=== PATIENT | female | born 1970 | race Caucasian/White ===

== ENCOUNTER → 2018-01-09 | Outpatient (CLI) | payer BC ==
--- NOTE | 2018-01-11 11:46 | MM ---
Reason for exam: screening (asymptomatic). Last mammogram was performed 2 years and 2 months ago. History: Took hormonal contraceptives for 4 years. Physical Findings: A clinical breast exam by your physician is recommended on an annual basis and results should be correlated with mammographic findings. MG 3D Screening Mammo W/Cad Bilateral CC and MLO view(s) were taken. Prior study comparison: November 04, 2015, bilateral MG 3d screening mammo w/cad. The breast tissue is heterogeneously dense. This may lower the sensitivity of mammography. No significant changes when compared with prior studies. ASSESSMENT: Negative, BI-RAD 1 RECOMMENDATION: Routine screening mammogram of both breasts in 1 year.
== END | disposition home or self-care (01) ==
LOC: RADMAMWWP 16:25
PROVIDERS: ATTEND Obstetrics & Gynecology
DX: Z12.31 Encounter for screening mammogram for malignant neoplasm of breast (principal)
CPT/HCPCS: 77063; 77067

== ENCOUNTER 2024-10-05 11:42 | Emergency (ER) | payer BC ==
--- NOTE | 2024-10-05 12:11 | ED ---
Female Urogenital HPI - General Source: family - History of Present Illness Onset/Timin -: days(s) <Rahul Deleon - Last Filed: 10/05/24 12:56> <Yinka Francois - Last Filed: 10/05/24 14:32> - General Stated complaint: fell downstairs R foot and L knee injury Time Seen by Provider: 10/05/24 11:58 - History of Present Illness Initial comments: Dictation was produced using [employer] dictation software. please excuse any grammatical, word or spelling errors. Chief Complaint: 54-year-old female with right foot pain and left knee pain History of Present Illness: Patient is a 54-year-old female presents to the emergency department with left knee pain and right foot pain. Patient states she was walking the stairs. States that she missed the last step. She was carrying her dog. As she missed the last step she states that her left knee bent in a valgus position and then her right foot curled over the step causing it to flex. Patient denies any other complaints. Denies any anticoagulation use. The ROS documented in this emergency department record has been reviewed and confirmed by me. Those systems with pertinent positive or negative responses have been documented in the HPI. All other systems are other negative and/or noncontributory. (Yinka Francois) - Related Data Allergies Allergy/AdvReac Type Severity Reaction Status Date / Time sulfamethoxazole Allergy Rash/Hives Verified 10/05/24 12:33 [From Bactrim] trimethoprim [From Bactrim] Allergy Rash/Hives Verified 10/05/24 12:33 Review of Systems ROS Other: All systems not noted in ROS Statement are negative. <Rahul Deleon - Last Filed: 10/05/24 12:56> ROS Other: All systems not noted in ROS Statement are negative. <Yinka Francois - Last Filed: 10/05/24 14:32> ROS Statement: Those systems with pertinent positive or pertinent negative responses have been documented in the HPI. General Exam <Rahul Deleon - Last Filed: 10/05/24 12:56> <Yinka Francois - Last Filed: 10/05/24 14:32> - General Exam Comments Initial Comments: Visual Physical Exam Vital signs reviewed General: Well-appearing, nontoxic, no acute distress. Head: Normocephalic, atraumatic Eyes: PERRLA, EOMI ENT: Airway patent Chest: Nonlabored breathing Skin: No visual rash, normal skin tone Neuro: Alert. Patient appears confused Musculoskeletal: No gross abnormalities (Rahul Deleon) PHYSICAL EXAM: General Impression: Alert and oriented x3, not in acute distress HEENT: Normocephalic atraumatic, extra-ocular movements intact, pupils equal and reactive to light bilaterally, mucous membranes moist. Cardiovascular: Heart regular rate and rhythm Chest: Able to complete full sentences, no retractions, no tachypnea Abdomen: abdomen soft, non-tender, non-distended, no organomegaly Musculoskeletal: Pulses present and equal in all extremities, no peripheral edema Left knee: No gross deformity Right foot and ankle: No gross deformity Motor: no focal deficits noted Neurological: CN II-XII grossly intact, no focal motor or sensory deficits noted Skin: Intact with no visualized rashes Psych: Normal affect and mood (Yinka Francois) Course Vital Signs 10/05/24 12:29 Temperature 98.2 F Pulse Rate 98 Respiratory 18 Rate Blood Pressure 154/96 O2 Sat by Pulse 99 Oximetry Procedures - Orthopedic Splinting/Casting Injury #1 Side: left Lower Extremity Injury Location: short leg, foot Lower Extremity Immobilizer: posterior splint <Yinka Francois - Last Filed: 10/05/24 14:32> Medical Decision Making <Rahul Deleon - Last Filed: 10/05/24 12:56> <Yinka Francois - Last Filed: 10/05/24 14:32> - Medical Decision Making I completed the quick note portion of this chart signed NAVID Paulson (Rahul Deleon) Was pt. sent in by a medical professional or institution (JAMAL Saldana, MACHINE ADJUSTER LEADER, urgent care, hospital, or assisted...) When possible be specific @ -No Did you speak to anyone other than the patient for history (EMS, parent, family, police, friend...)? What history was obtained from this source @ -No Did you review nursing and triage notes (agree or disagree)? Why? @ -I reviewed and agree with nursing and triage notes Were old charts reviewed (outside hosp., previous admission, EMS record, old EKG, old radiological studies, urgent care reports/EKG's, assisted records)? Report findings @ -No old charts were reviewed Differential Diagnosis (chest pain, altered mental status, abdominal pain women, abdominal pain men, vaginal bleeding, musculoskeletal, weakness, fever, dyspnea, syncope, headache, dizziness, GI bleed, back pain, seizure, CVA, palpatations, mental health)? @ -Lisfranc injury, knee fracture, tib-fib fracture, ankle sprain EKG interpreted by me (3pts min.). @ -None done X-rays interpreted by me (1pt min.). @ -The left knee shows tiny effusion, x-ray of the right foot and ankle shows no acute processes. CT interpreted by me (1pt min.). @ -None done U/S interpreted by me (1pt. min.). @ -None done What testing was considered but not performed or refused? (CT, X-rays, U/S, labs)? Why? @ -None What meds were considered but not given or refused? Why? @ -None Was smoking cessation discussed for >3mins.? @ -No Were there social determinants of health that impacted care today? How? (Homelessness, low income, unemployed, alcoholism, drug addiction, transportation, low edu. Level, literacy, decrease access to med. care, detention, rehab)? @ -No Was there de-escalation of care discussed even if they declined (Discuss DNR or withdrawal of care, Hospice)? DNR status @ -No What co-morbidities impacted this encounter? (DM, HTN, Smoking, COPD, CAD, Cancer, CVA, ARF, Chemo, Hep., AIDS, mental health diagnosis, sleep apnea, morbid obesity)? @ -None Was patient admitted / discharged? Hospital course, mention meds given and route, prescriptions, significant lab abnormalities, going to OR and other pertinent info. @ -54-year-old female with history of previous injury to the left knee and right foot presents to the ER with left knee and right foot injury after falling on it awkwardly. Vital signs stable. Physical examination shows no obvious deformities. Knee x-ray shows tiny effusion. Foot and ankle x-ray are negative. She does have pain at the proximal fifth metatarsal raising suspicion of possible Gomez fracture. She is placed in a right foot splint. Patient also placed in left knee immobilizer. Given outpatient follow-up with orthopedic surgery. Patient given analgesics starter pack. Patient is weightbearing as tolerated to the left knee. She is told to nonweightbearing to the right foot until evaluated by specialist. Did you discuss the management of the patient with other professionals (professionals i.e. , PA, MACHINE ADJUSTER LEADER, lab, RT, psych nurse, oncology social worker, dandy tender, teacher, payroll officer, community case manager)? Give summary @ -No Was critical care preformed (if so, how long)? @ -No Undiagnosed new problem with uncertain prognosis? @ -No Drug Therapy requiring intensive monitoring for toxicity (Heparin, Nitro, Insulin, Cardizem)? @ -No Were any procedures done? @ -No Diagnosis/symptom? Acute, or Chronic, or Acute on Chronic? Uncomplicated (without systemic symptoms) or Complicated (systemic symptoms)? @ -Knee strain, right knee pain Side effects of treatment? @ -No Exacerbation, Progression, or Severe Exacerbation? @ -No Poses a threat to life or bodily function? How? (Chest pain, [place], [place], pneumonia, PE, COPD, DKA, ARF, appy, cholecystitis, CVA, Diverticulitis, Homicidal, Suicidal, threat to staff... and all critical care pts) @ -yes (Yinka Francois) Disposition <Rahul Deleon - Last Filed: 10/05/24 12:56> Is patient prescribed a controlled substance at d/c from ED?: No Time of Disposition: 14:31 <Yinka Francois - Last Filed: 10/05/24 14:32> Clinical Impression: Knee strain, Strain of left foot Disposition: HOME SELF-CARE Condition: Fair Instructions (If sedation given, give patient instructions): Fall Prevention (ED) Additional Instructions: no weight bearing to right foot until cleared by orthopedic surgery. weight bearing as tolerated to left knee Referrals: Paul Nielsen MD [STAFF PHYSICIAN] - 1-2 days
[2024-10-05 12:33] VITALS: RESP 18; TEMP 98.2
--- NOTE | 2024-10-05 13:49 | XR ---
Left knee. HISTORY: Pain following fall. COMPARISON: None TECHNIQUE: 3 views left knee were obtained. FINDINGS: There is no fracture, dislocation or focal intraosseous abnormality. There is a suggestion of a tiny joint effusion. IMPRESSION: Tiny joint effusion with no other significant abnormality seen. [facility], Workstation: [facility], 10/05/2024 1:46 PM
--- NOTE | 2024-10-05 13:50 | XR ---
Right foot. HISTORY: Pain following fall. COMPARISON: None. TECHNIQUE: 3 views of the right foot were obtained. FINDINGS: There is no acute fracture or dislocation. There is mild joint space narrowing and subchondral sclerosis of the first MTP joint. IMPRESSION: 1. No acute trauma. 2. Mild osteoarthritis of the first MTP joint. [facility], Workstation: [facility], 10/05/2024 1:48 PM
--- NOTE | 2024-10-05 13:51 | XR ---
Right ankle. HISTORY: Pain following fall. COMPARISON: None. TECHNIQUE: 3 views right ankle were obtained. FINDINGS: There is no fracture, dislocation, interosseous, intra-articular or soft tissue abnormality. The ankl e mortise is intact. IMPRESSION: No evidence of acute trauma. [facility], Workstation: [facility], 10/05/2024 1:49 PM
[2024-10-05] MEDS: traMADol 50 MG STARTER PACK 3 TAB BTL PO STA (14:43)
[2024-10-05 14:52] VITALS: BP 138/79; PULSE 78
== END 2024-10-05 14:48 | disposition home or self-care (01) ==
LOC: EC 11:42
DX: S96.912A Strain of unspecified muscle and tendon at ankle and foot level, left foot, initial encounter (principal); S86.911A Strain of unspecified muscle(s) and tendon(s) at lower leg level, right leg, initial encounter; Z88.1 Allergy status to other antibiotic agents; Z88.2 Allergy status to sulfonamides; W10.9XXA Fall (on) (from) unspecified stairs and steps, initial encounter; Y93.01 Activity, walking, marching and hiking
CPT/HCPCS: 73562; 73610; 73630; 99283; 29515; L1830